=== PATIENT | male | born 1960 | race African-American/Black ===

== ENCOUNTER 2025-03-01 13:22 | Inpatient (IN) | payer MEDICAID ==
[~2025-03-01] VITALS: Ht 170.2 cm; Wt 81.2 kg
[2025-03-01 13:32] VITALS: O2SAT 97
[2025-03-01 14:49] LABS: CREATININE 0.7 mg/dL (0.6-1.3); INR 1.1; UREA NITROGEN BLOOD 8 mg/dL (9-23)
[2025-03-01 14:50] LABS: BASOPHILS % 0.6 % (0.0-2.0); EOSINOPHILS % 11.4 % (0.0-5.0); HEMATOCRIT. 32.1 % (42.0-52.0); HEMOGLOBIN. 10.4 g/dL (14.0-18.0); LYMPHOCYTES % 25.0 % (20.0-50.0); MEAN PLATELET VOLUME 7.3 fl (7.4-10.4); MONOCYTES % 9.9 % (2.0-8.0); NEUTROPHILS % 53.1 % (40.0-76.0); PLATELET 513 x1000/uL (130-400); RED BLOOD CELL COUNT 3.62 mill/uL (4.7-6.1); RED CELL DISTRIBUTION WIDTH 18.4 % (11.6-14.6)
[2025-03-01 14:51] LABS: ASPARTATE AMINOTRANSFERASE 24 IU/L (<34); TROPONIN I HIGH SENSITIVITY < 4 ng/L (3.0-53)
[2025-03-01 14:52] LABS: BILIRUBIN DIRECT < 0.1 mg/dL (<=3.0); BILIRUBIN TOTAL 0.2 mg/dL (0.1-1.0); PROTEIN TOTAL 8.0 g/dL (6.0-8.3)
[2025-03-01] MEDS: PIPERACILLIN/TAZO 3.375G/50ML 50 ML IV ONE (15:05)
[2025-03-01] MEDS: SODIUM CHLORIDE 0.9% 1,000 ML IV ONE (15:05)
[2025-03-01] MEDS: VANCOMYCIN 1G PREMIX 200 ML IV ONE (15:25)
[2025-03-01] MEDS ORDERED: ACETAMINOPHEN 325MG TABLET PO PRN ×2 (18:15)
[2025-03-01] MEDS ORDERED: ONDANSETRON HCL 4MG/2ML INJ IV PRN (18:15)
[2025-03-01] MEDS ORDERED: IPRATROPIUM/ALBUTEROL 0.5-3(2.5)MG/3ML NEB HHN PRN (18:15)
[2025-03-01] MEDS ORDERED: CLONIDINE 0.1MG TABLET PO PRN (18:15)
[2025-03-01] MEDS ORDERED: DOCUSATE SODIUM 100MG CAPSULE PO PRN (18:15)
[2025-03-01] MEDS ORDERED: GUAIFENESIN 200MG/10ML SUGAR FREE UDC PO PRN (18:15)
[2025-03-01 20:00] VITALS: BP 113/73; PULSE 118; RESP 22; TEMP 36.3; O2SAT 98
[2025-03-01 20:17] LABS: PHOSPHORUS 3.4 mg/dL (2.5-4.9)
[2025-03-01 21:05] LABS: VITAMIN B12 SERUM > 2000 pg/mL (211-911)
[2025-03-01 21:20] VITALS: BP 135/60; PULSE 88; RESP 18; TEMP 36.696
[2025-03-01] MEDS ORDERED: PNEUMOCOCCAL 20-VAL CONJ-DIP CRM 0.5ML IM ONE (21:30)
[2025-03-01] MEDS: ATORVASTATIN CALCIUM 40MG TABLET PO SCH (22:59)
[2025-03-01] MEDS: ASPIRIN 81MG EC TABLET PO SCH (22:59)
[2025-03-01] MEDS: GABAPENTIN 400MG CAPSULE PO SCH (22:59)
[2025-03-01] MEDS: ASCORBIC ACID 500 MG TABLET PO SCH (22:59)
[2025-03-01] MEDS: FOLIC ACID 1MG TABLET PO SCH (22:59)
[2025-03-01] MEDS: ZINC SULFATE 220 MG ( 50 ) CAPSULE PO SCH (23:00)
[2025-03-01] MEDS: PANTOPRAZOLE SODIUM 40 MG/VIAL IV SCH (23:00)
[2025-03-01] MEDS: PIPERACILLIN/TAZO 3.375G/50ML 50 ML IV SCH (23:00)
[2025-03-01] MEDS: SODIUM CHLORIDE 0.9% 1,000 ML IV SCH (23:08)
[2025-03-01] MEDS: VANCOMYCIN 1G PREMIX 200 ML IV SCH (23:09)
[2025-03-02 04:00] VITALS: BP 115/68; PULSE 93; RESP 21; TEMP 36.7; O2SAT 97
[2025-03-02] MEDS: HYDROCODONE/ACETAMINOPHEN 10/325MG TABLET PO PRN (06:28)
[2025-03-02] MEDS: DIPHENHYDRAMINE 25MG CAPSULE PO PRN (06:34)
[2025-03-02] MEDS: FERROUS SULFATE 325MG TABLET PO SCH (07:40)
[2025-03-02 08:10] LABS: BASOPHILS % 0.5 % (0.0-2.0); EOSINOPHILS % 10.1 % (0.0-5.0); HEMATOCRIT. 30.0 % (42.0-52.0); HEMOGLOBIN. 9.8 g/dL (14.0-18.0); LYMPHOCYTES % 20.6 % (20.0-50.0); MEAN PLATELET VOLUME 7.3 fl (7.4-10.4); MONOCYTES % 10.0 % (2.0-8.0); NEUTROPHILS % 58.8 % (40.0-76.0); PLATELET 508 x1000/uL (130-400); RED BLOOD CELL COUNT 3.44 mill/uL (4.7-6.1); RED CELL DISTRIBUTION WIDTH 18.5 % (11.6-14.6)
[2025-03-02 08:22] LABS: CREATININE 0.6 mg/dL (0.6-1.3); TRIGLYCERIDE 35 mg/dL (0-150); UREA NITROGEN BLOOD 5 mg/dL (9-23)
[2025-03-02 08:23] LABS: LDL CHOLESTEROL 33 mg/dL (5-100)
[2025-03-02 08:27] LABS: T4 FREE 0.91 ng/dL (0.89-1.76)
[2025-03-02] MEDS: ENOXAPARIN 40MG/0.4ML SYR SUBCUT SCH (09:27)
[2025-03-02 16:00] VITALS: BP 97/71; PULSE 95; RESP 18; TEMP 36.3; O2SAT 98
[2025-03-02 20:00] VITALS: BP 117/69; PULSE 96; RESP 18; TEMP 36.2; O2SAT 97
[2025-03-02] MEDS ORDERED: NALOXONE HCL 0.4MG/ML VIAL IV PRN (23:45)
[2025-03-03 02:00] VITALS: BP 153/93; PULSE 96; RESP 18
[2025-03-03 08:00] VITALS: BP 131/81; PULSE 100; RESP 18; TEMP 36.6; O2SAT 100
[2025-03-03 08:44] LABS: HEMATOCRIT. 32.1 % (42.0-52.0); HEMOGLOBIN. 10.2 g/dL (14.0-18.0); MEAN PLATELET VOLUME 7.7 fl (7.4-10.4); PLATELET 541 x1000/uL (130-400); RED BLOOD CELL COUNT 3.67 mill/uL (4.7-6.1); RED CELL DISTRIBUTION WIDTH 18.3 % (11.6-14.6)
[2025-03-03 08:48] LABS: CREATININE 0.7 mg/dL (0.6-1.3); UREA NITROGEN BLOOD < 5 mg/dL (9-23)
[2025-03-03] MEDS: AMLODIPINE 5MG TABLET PO SCH (09:00)
[2025-03-03 12:00] VITALS: BP 142/83; PULSE 97; RESP 19; TEMP 36.7; O2SAT 100
[2025-03-03 16:00] VITALS: BP 126/76; PULSE 91; RESP 19; TEMP 36.5; O2SAT 97
[2025-03-03 18:08] LABS: EOSINOPHILS % MANUAL 10.0 % (0.0-5.0); LYMPHOCYTES % MANUAL 22.0 % (20.0-50.0); MONOCYTES % MANUAL 18.0 % (2.0-8.0); NEUTROPHILS % MANUAL 50.0 % (45.0-75.0); PLATELET ESTIMATE INCREASED
[2025-03-04 07:33] LABS: CREATININE 0.8 mg/dL (0.6-1.3); UREA NITROGEN BLOOD 5 mg/dL (9-23)
[2025-03-04 08:00] VITALS: BP 127/80; PULSE 88; RESP 18; TEMP 36.7; O2SAT 97
[2025-03-04 12:00] VITALS: BP 130/72; PULSE 84; RESP 17; TEMP 36.7; O2SAT 98
[2025-03-04] MEDS ORDERED: FOLI-43 PO (16:44)
[2025-03-04] MEDS ORDERED: GABA-534 PO (16:44)
[2025-03-04] MEDS ORDERED: LIP40 PO (16:44)
[2025-03-04] MEDS ORDERED: FERR-63 PO (16:44)
[2025-03-04] MEDS ORDERED: DIPH25CA83 PO (16:44)
[2025-03-04] MEDS ORDERED: AMLO5TAB88 PO (16:44)
[2025-03-04] MEDS ORDERED: DOCU-422 PO (16:44)
[2025-03-04] MEDS ORDERED: ASPI-1406 PO (16:44)
[2025-03-04] MEDS ORDERED: ASCO500T20 PO (16:44)
[2025-03-05] VITALS: BP 118/76; PULSE 84; RESP 18; TEMP 36.1; O2SAT 98
[2025-03-05 04:00] VITALS: BP 138/85; PULSE 90; RESP 18; TEMP 36.1; O2SAT 98
[2025-03-05 08:00] VITALS: BP 114/67; PULSE 89; RESP 18; TEMP 36.5; O2SAT 95
[2025-03-05] MEDS: HYDROCODONE/ACETAMINOPHEN 5/325MG TABLET PO PRN (09:05)
[2025-03-05 12:00] VITALS: BP 105/65; PULSE 85; RESP 18; TEMP 33.3; O2SAT 100
[2025-03-05 20:00] VITALS: BP 118/68; PULSE 99; RESP 18; TEMP 36.7; O2SAT 95
== END 2025-03-05 23:10 | DRG 720 ==
LOC: ER 13:22 → 8WST 16:43 → EDBEDREQTM 16:48 → EDBEDREQ 16:48
PROVIDERS: ADMIT Hospitalist; ATTEND Hospitalist
DX: A41.9 Sepsis, unspecified organism (principal); L89.224 Pressure ulcer of left hip, stage 4; R53.2 Functional quadriplegia; E87.20 Acidosis, unspecified; L03.116 Cellulitis of left lower limb; L03.115 Cellulitis of right lower limb; L97.829 Non-pressure chronic ulcer of other part of left lower leg with unspecified severity; M62.48 Contracture of muscle, other site; R73.03 Prediabetes; I73.9 Peripheral vascular disease, unspecified; E78.00 Pure hypercholesterolemia, unspecified; D64.9 Anemia, unspecified; K21.9 Gastro-esophageal reflux disease without esophagitis; Z74.01 Bed confinement status; Z91.199 Patient's noncompliance with other medical treatment and regimen due to unspecified reason; Z79.82 Long term (current) use of aspirin
CPT/HCPCS: 36415; 71045; 80048; 80061; 80076; 80202; 82550; 82607; 82728; 83036; 83540; 83550; 83605; 83735; 83880; 83930; 84100; 84145; 84439; 84443; 84484; 85025; 86850; 86900; 93005; 93923; 96365; 96367; 97162; 97166; 99291; J1650; J2470; J2543; J3373; J7030; Q0163